=== PATIENT | female | born 1955 | race Caucasian/White ===

== ENCOUNTER → 2019-03-20 | Outpatient (CLI) | payer BC | LOC: BMCIMAGING 08:21 | PROVIDERS: ATTEND Physician Assistant | DX: S52.322D Displaced transverse fracture of shaft of left radius, subsequent encounter for closed fracture with routine healing (principal); S52.612S Displaced fracture of left ulna styloid process, sequela; M85.88 Other specified disorders of bone density and structure, other site; M19.032 Primary osteoarthritis, left wrist ==